=== PATIENT | female | born 1950 | race Hispanic/Latino ===

== ENCOUNTER 2018-07-22 10:58 | Day surgery (SDC) | payer MEDICARE, BC ==
[2018-01-10 16:59] VITALS: BMI 29.6
[~2018-07-22 10:58] MED LIST: Sodium Chloride 0.9% 1,000 ML IV SCH
[2018-07-22] MEDS ORDERED: Propofol 10 mg/ml Inj (20 ML) ONE (12:27)
[2018-07-22] MEDS ORDERED: Sodium Chloride 0.9% 1,000 ML IV SCH (13:15)
[2018-07-22 14:14] VITALS: BP 126/69; PULSE 75; RESP 18; TEMP 97; O2SAT 95
== END 2018-07-22 15:14 | disposition home or self-care (01) ==
LOC: ENDO 10:58
PROVIDERS: ATTEND Internal Medicine Gastroenterology
DX: D12.4 Benign neoplasm of descending colon (principal); D12.8 Benign neoplasm of rectum; K57.30 Diverticulosis of large intestine without perforation or abscess without bleeding; K63.89 Other specified diseases of intestine; K64.8 Other hemorrhoids; I10 Essential (primary) hypertension; R19.7 Diarrhea, unspecified
CPT/HCPCS: 45380; 45385; 88305; J2001; J2704; J7030; J7040

== ENCOUNTER 2018-09-06 08:27 | Day surgery (SDC) | payer MEDICARE, BC ==
[2018-09-02 15:47] VITALS: BMI 36.6
[2018-09-06] MEDS ORDERED: Midazolam 2 MG/2 ML VIAL ONE (10:34)
[2018-09-06] MEDS ORDERED: Propofol 10 mg/ml Inj (20 ML) ONE (10:34)
[2018-09-06 11:58] VITALS: BP 132/65; PULSE 69; RESP 20; TEMP 97.5; O2SAT 96
== END 2018-09-06 13:21 | disposition home or self-care (01) ==
LOC: ENDO 08:27
PROVIDERS: ATTEND Internal Medicine Gastroenterology
DX: K25.9 Gastric ulcer, unspecified as acute or chronic, without hemorrhage or perforation (principal); K29.40 Chronic atrophic gastritis without bleeding; K44.9 Diaphragmatic hernia without obstruction or gangrene; I10 Essential (primary) hypertension
CPT/HCPCS: 43239; 88305; 88342; J2001; J2250; J2704; J7040